=== PATIENT | female | born 1985 | race Caucasian/White ===

== ENCOUNTER 2020-10-06 08:37 | Emergency (ER) | payer OTHER ==
[~2020-10-06] VITALS: Ht 160 cm; Wt 99.8 kg
[2020-10-06] MEDS ORDERED: DICLOFENAC SOD100 G1 TOP (08:54)
[2020-10-06] MEDS ORDERED: PROPRANOLOL HCL60 MG PO (08:55)
[2020-10-06] MEDS ORDERED: SPRINTEC1 EACH PO (08:55)
[2020-10-06] MEDS ORDERED: HYDROCHLOROTH12.5 MG PO (08:55)
[2020-10-06] MEDS ORDERED: METFORMIN HCL500 M1 PO (08:55)
== END 2020-10-06 09:33 | disposition home or self-care (01) ==
LOC: ED 08:37
DX: S61.412A Laceration without foreign body of left hand, initial encounter (principal); W45.8XXA Other foreign body or object entering through skin, initial encounter; I10 Essential (primary) hypertension; R73.03 Prediabetes; Z79.899 Other long term (current) drug therapy; Z79.84 Long term (current) use of oral hypoglycemic drugs
CPT/HCPCS: 12001; 90471; 90715; 99282-25